=== PATIENT | female | born 1945 | race Caucasian/White ===

== ENCOUNTER 2020-12-15 16:58 | Emergency (ER) | payer OTHER, MEDICARE, BC ==
[~2020-12-15] VITALS: Ht 172 cm; Wt 81.6 kg
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
[2020-12-15] MEDS ORDERED: RX-CYCLOBENZAPRINE 10 MG (FLEXERIL) TAB PPK#3 PO STA (18:21)
[2020-12-15] MEDS ORDERED: METH-732 PO (18:22)
[2020-12-15 18:28] VITALS: BP 160/92
== END 2020-12-15 18:28 | disposition home or self-care (01) ==
LOC: ER 17:00
DX: S40.022A Contusion of left upper arm, initial encounter (principal); V89.2XXA Person injured in unspecified motor-vehicle accident, traffic, initial encounter
CPT/HCPCS: 70450; 71045; 72125; 73030; 73552